=== PATIENT | male | born 1980 | race Hispanic/Latino ===

== ENCOUNTER 2019-06-07 11:46 | Emergency (ER) | payer OTHER | END 2019-06-07 12:18 | disposition left against medical advice (07) | LOC: EDH 11:46 | DX: Z53.21 Procedure and treatment not carried out due to patient leaving prior to being seen by health care provider (principal) ==

== ENCOUNTER 2020-02-10 14:16 | Emergency (ER) | payer SELFPAY ==
[2020-02-10] MEDS ORDERED: DEXAMETHASONE SOD PHOSPHATE 10MG/ML 1ML VIAL ONE (14:35)
[2020-02-10] MEDS ORDERED: KETOROLAC TROMETHAMINE 60 MG/2 ML VIAL ONE (14:35)
[2020-02-10 15:57] LABS: RAPID GROUP A STREP POSITIVE (NEGATIVE)
[2020-02-10] MEDS ORDERED: CEFTRIAXONE SODIUM 1 GM ONE (16:19)
[2020-02-10] MEDS ORDERED: LIDOCAINE HCL-MPF 1% 2ML VIAL ONE (16:20)
== END 2020-02-10 16:32 | disposition home or self-care (01) ==
LOC: EDH 14:16
DX: J02.0 Streptococcal pharyngitis (principal)
CPT/HCPCS: 87804 ×2; 87880; 96372 ×3; 99284; J0696; J1100; J1885; J3490

== ENCOUNTER 2020-12-16 11:28 | Observation (INO) | payer SELFPAY ==
[~2020-12-16] VITALS: Ht 167.6 cm; Wt 88.7 kg
[2020-12-16 11:53] LABS: BASOPHILS % (AUTO) 0.2 % (0.0-5.0); EOSINOPHILS % (AUTO) 1.8 % (0.0-8.0); HEMATOCRIT 44.6 % (42-54); LYMPHOCYTES % (AUTO) 22.7 % (21.0-51.0); MEAN CORPUSCULAR HEMOGLOBIN 28.5 pg (27.0-33.0); MEAN CORPUSCULAR HGB CONC 34.1 g/dL (32.0-36.0); MEAN CORPUSCULAR VOLUME 83.7 fL (79-99); NEUTROPHILS % (AUTO) 67.9 % (40.0-77.0); PLATELET COUNT (AUTO) 321 K/uL (130-400); RED BLOOD CELL COUNT(AUTO) 5.33 MIL/uL (4.50-6.20); RED CELL DISTRIBUTION WIDTH 13.1 % (11.0-15.5); WHITE BLOOD COUNT (AUTO) 8.2 K/uL (4.8-10.8)
[2020-12-16 12:05] LABS: CREATININE 0.9 mg/dL (0.5-1.5); POTASSIUM 3.6 mmol/L (3.5-5.1)
[2020-12-16 12:09] LABS: ALBUMIN 4.4 g/dL (3.5-5.0); BILIRUBIN,TOTAL 0.5 mg/dL (0.2-1.0); TOTAL PROTEIN, SERUM 8.3 g/dL (6.0-8.3)
[2020-12-16] MEDS ORDERED: MAG HYDROX/AL HYDROX/SIMETH ES 30 ML SUSP UDCUP ONE (12:59)
[2020-12-16] MEDS ORDERED: LIDOCAINE HCL 2% VISCOUS 15 ML UDCUP ONE (12:59)
[2020-12-16] MEDS ORDERED: ASPIRIN 325 MG TABLET ONE (12:59)
[2020-12-16 14:16] LABS: APPEARANCE,URINE Clear (CLEAR); BILIRUBIN,URINE Negative (NEGATIVE); COLOR,URINE Yellow (YELLOW); GLUCOSE, URINE (UA) Negative (NEGATIVE); KETONES,URINE 15 mg/dL (NEGATIVE); LEUKOCYTE ESTERASE ,URINE Negative (NEGATIVE); NITRATE,URINE Negative (NEGATIVE); OCCULT BLOOD,URINE Negative (NEGATIVE); PH,URINE 7.5 (5.0-8.0); PROTEIN,URINE Negative (NEGATIVE)
[2020-12-16 14:24] LABS: AMPHET/METH SCREEN,URINE NEGATIVE (NEGATIVE); BARBITURATE SCREEN, URINE NEGATIVE (NEGATIVE); BENZODIAZEPINES SCREEN,URINE NEGATIVE (NEGATIVE); CANNABINOID SCREEN,URINE NEGATIVE (NEGATIVE); COCAINE SCREEN,URINE NEGATIVE (NEGATIVE); OPIATE SCREEN,URINE NEGATIVE (NEGATIVE); PHENCYCLIDINE SCREEN,URINE NEGATIVE (NEGATIVE)
[2020-12-16] MEDS ORDERED: NITROGLYCERIN 0.4 MG SL TAB SL PRN (15:45)
[2020-12-16] MEDS ORDERED: MAG HYDROX/AL HYDROX/SIMETH ES 30 ML SUSP UDCUP PO SCH (16:00)
[2020-12-16 16:05] LABS: HEMOGLOBIN A1C 5.9 % (4.0-6.0)
[2020-12-16 16:13] LABS: THYROID STIMULATING HORMONE 0.77 uIU/mL (0.36-3.74)
[2020-12-16 18:16] VITALS: BP 127/87
[2020-12-16 20:00] VITALS: BP 118/84
[2020-12-16 23:50] VITALS: BP 108/68
[2020-12-17 03:55] VITALS: BP 111/66
[2020-12-17 08:00] VITALS: BP 112/76
[2020-12-17] MEDS ORDERED: ATORVASTATIN CALCIUM 20 MG TABLET PO SCH (09:00)
[2020-12-17] MEDS ORDERED: PANTOPRAZOLE SODIUM 40 MG TABLET.DR PO SCH (09:00)
[2020-12-17] MEDS ORDERED: ASPIRIN 81MG TAB.CHEW PO SCH (09:00)
[2020-12-17 11:21] VITALS: BP 114/70
[2020-12-17] MEDS ORDERED: ASPI-1005 PO (15:54)
[2020-12-17] MEDS ORDERED: ATOR20TA65 PO (15:54)
[2020-12-17] MEDS ORDERED: PANT40TA PO (15:54)
[2020-12-17 16:00] VITALS: BP 116/80
[2020-12-17 16:19] LABS: CHOLESTEROL 171 mg/dL (<200); HDL CHOLESTEROL 103 mg/dL (29-71); LDL DIRECT 113 mg/dL (0-99); TRIGLYCERIDES 111 mg/dL (30-200)
== END 2020-12-17 18:42 | disposition home or self-care (01) ==
LOC: EDH 11:28 → EDHIP 11:29 → 3CH 18:09
PROVIDERS: ADMIT Internal Medicine; ATTEND Internal Medicine
DX: R07.89 Other chest pain (principal); I45.10 Unspecified right bundle-branch block; R94.31 Abnormal electrocardiogram [ECG] [EKG]; Z90.49 Acquired absence of other specified parts of digestive tract
CPT/HCPCS: 36415 ×2; 71045; 80053; 80061 ×2; 80305; 81003; 83036; 83690; 84443; 84484 ×4; 85025; 93005 ×2; 93306; 93356; 99285; G0378 ×26

== ENCOUNTER 2024-11-29 05:22 | Emergency (ER) | payer BC ==
[~2024-11-29] VITALS: Ht 167.6 cm; Wt 95.3 kg
[~2024-11-29 05:22] MED LIST: ASPI-1005 PO; ATOR20TA65 PO; PANT40TA PO
--- NOTE | 2024-11-29 05:51 | ERN ---
ED Note History of Present Illness Stated Complaint: L SHOULDER PAIN Chief Complaint: Shoulder Injury/Pain Time Seen by MD: 05:38 Dictation: This is a 44-year-old male who presented to the emergency room with left shoulder pain. He sustained injury to the left shoulder while playing soccer yesterday and he fell on the left side when he was hit by another player he had minimal pain but had full range of motion no abrasions or lacerations. Pain got worse overnight hence came in for evaluation. Temperature 98 pulse 62 respirations 16 blood pressure 138/83 with a pulse oximetry of 98% on room air His chronic medical problems include hypercholesterolemia Allergies: Coded Allergies: No Known Drug Allergies (Unverified Allergy, Unknown, 02/10/20) Home Meds Active Scripts Pantoprazole Sodium (Protonix) 40 Mg Tablet.dr, 40 MG PO DAILY for 30 Days, #30 TAB Prov:JAI PUENTE I [facility] 12/17/20 Atorvastatin Calcium (Atorvastatin Calcium) 20 Mg Tablet, 20 MG PO DAILY for 30 Days, #30 TAB Prov:JAI PUENTE I [facility] 12/17/20 Aspirin (ASPIRIN 81MG CHEW TAB) 81 Mg Tab.chew, 81 MG PO DAILY for 30 Days, #30 TAB.CHEW Prov:JAI PUENTE I [facility] 12/17/20 Past Medical History Past Medical History: No Pertinent History, High Cholesterol Surgical History: Other Surgical History Other: EXCISION OF BROWN RECLUSE BITE L THIGH RN Note Reviewed/Agreed w/PFSH: Yes Review of System Dictation Constitutional: Negative for fever,chills, and weight loss Eyes: Negative for injury, pain,redness, and discharge ENT: Negative for injury,pain or swelling Cardiovascular: Negative for chest pain, palpitations, and edema Respiratory: Negative for shortness of breath, cough, and wheezing, Abdomen/GI: Negative for abdominal pain, nausea, vomiting, diarrhea, and constipation Back: Negative for injury and pain : Negative for injury, bleeding and discharge MS/Extremity: Positive for injury to left shoulder Skin: Negative for rash, and discoloration Neuro: Negative for headache, weakness, numbness, tingling, and seizure Psych: Negative for suicide ideation, homicidal ideation, and hallucinations Initial Vital Sign VS Vital Signs Date Time Temp Pulse Resp B/P (MAP) Pulse Ox O2 Delivery O2 Flow Rate FiO2 11/29/24 05:23 98.1 62 16 138/83 98 Room Air 0 11/29/24 06:08 21 Physical Exam Dictation General: awake, alert, NAD obese male Head/Face: Normocephalic, atraumatic Eyes: PERRL, EOMI, vision at baseline ENT: oral cavity clear, TMs clear, no signs of infection Neck: Trachea midline, supple, no nuchal rigidity Cardiovascular: RRR, normal S1/S2, No MRGs, no JVD Respiratory: CTAB, no respiratory distress, No rales or wheezes Abdomen: Soft, non-tender, non-distended, normal bowel sounds, no guarding or rebound. Skin: Warm, dry, normal turgor, no rash MS/Extremity: Pulses equal, no cyanosis, neurovascular intact, FROM pain with movement of the left arm and shoulder joint Neuro: COAx4, GCS 15, strength 5/5, CN 2-12 intact, normal cerebellar exam, normal gait, Psych: Normal behavior, mood, and affect normal Extremities-trace edema without any palpable cords, Homans sign is negative Results (Laboratory/Radiology) Labs Reviewed?: Yes ED Course ED Course Orders Procedure Category Date Status Time Shoulder Comp 2+Vws Lt RAD 11/29/24 Taken 05:38 Ketorolac PHA 11/29/24 Complete Tromethamine 30mg/Ml 06:00 Current Medications Medications (Trade) Dose Ordered Sig/Lindsay Route PRN Reason Start Time Stop Time Status Last Admin Dose Admin Ketorolac Tromethamine (toRADol) 30 mg ONCE ONCE IM 11/29/24 06:00 11/29/24 06:01 DC 11/29/24 06:04 Vital Signs Date Time Temp Pulse Resp B/P (MAP) Pulse Ox O2 Delivery O2 Flow Rate FiO2 11/29/24 06:08 71 16 131/67 99 Room Air* 0 21 11/29/24 05:23 98.1 62 16 138/83 98 Room Air 0 We will perform imaging and administer medications according to the patient's complaint. Once the results are available, will review and personally interpreted the labs to rule out any acute life-threatening emergency the trach require immediate intervention and treatment. I will then re-evaluate the patient after treatment and diagnostic exams have return to determine whether the patient requires any further testing, can safely be discharged home or need further admission to hospital for additional treatment and evaluation. Left shoulder x-ray-no obvious fracture of the humerus or dislocation of the joint noted final radiology report is pending at this time 7:24 a.m.-x-ray also reviewed by my colleague no evidence of any fracture or dislocation Medical Decision Making MDM MDM: Differential diagnosis: Shoulder dislocation, fracture of the humerus, rotator cuff tear, contusion Rationale: Tests considered and ordered secondary to shared decision making include: Previous outside records reviewed: Old ER visits. Risk of complication and/or morbidity or mortality of patient management: None Medications-Per medication reconciliation Need for hospitalization: Patient does not meet criteria for hospitalization. Need for emergency major/minor surgery: No There are no social concerns with this patient. Prescription drug management Prescriptions will include symptomatic care Patient's prior external medical records from other ER visits were reviewed by me as indicated. Prior testing and results from previous visits were reviewed. Prior tests were taken into account with medical decision making and resource utilization, independent historian/historians were used to obtain complete medical history. I independently interpreted the test that were performed, results were reviewed by me and considered findings on radiology if ordered. Medical management and examination interpretation discussions were had by me with other qualified healthcare professionals as indicated for the patient's care. Problem List Problem List: (1) Left shoulder pain (2) Injury of left shoulder DX & DISP Disposition: Discharge Departure Impression: Primary Impression: Left shoulder pain Additional Impression: Injury of left shoulder Condition: Stable Additional Instructions: Patient and the caregiver have been informed of all the diagnostic tests and the imaging conducted during the today's visit to the emergency room and has verbalized understanding of the results I have personally reviewed and interpreted all diagnostic exams performed here in the ER today as well as the vital signs documented by the nursing staff. The patient is now being discharged to home and should follow up with the primary care physician or the specialist as directed by the ER staff. Follow-up with primary care provider in 1 to 2 days. Take medications as directed here in the emergency room. Okay to continue home medications unless otherwise discussed during your visit in the emergency room today. Return to your nearest emergency room if symptoms worsen or if there is no improvement. Call 911 if you need immediate assistance. Take Tylenol or Motrin over-the- counter as needed and if no contraindications are present. Increase oral hydration. A wound culture or urine culture was ordered here in the emergency room department please follow-up with primary care provider and advise them to get repeat ports from our facility. If you had any Dayday wrap/splints that were applied here, please do not remove them until you see your primary care or specialty. Referrals: SELF,REFERRAL (PCP) MARYAM ELMORE MD Nov 29, 2024 05:51
[2024-11-29] MEDS: ketOROlac 30MG VIAL (30MG/ML) IM ONE (06:04)
[2024-11-29 07:33] VITALS: BP 127/69; PULSE 72; RESP 16; TEMP 98.1; O2SAT 98
--- NOTE | 2024-11-29 08:01 | HMCIMG ---
SHOULDER COMP 2+VWS LT HISTORY: Trauma COMPARISON: None TECHNIQUE: 2 images of left shoulder were obtained. FINDINGS: There is no acute displaced fracture or dislocation. Degenerative changes are seen. IMPRESSION: 1. Findings as described above.
== END 2024-11-29 07:38 | disposition home or self-care (01) ==
LOC: EDH 05:22
DX: S49.92XA Unspecified injury of left shoulder and upper arm, initial encounter (principal); M25.512 Pain in left shoulder; E78.00 Pure hypercholesterolemia, unspecified; Z79.82 Long term (current) use of aspirin; Z79.899 Other long term (current) drug therapy; W18.39XA Other fall on same level, initial encounter; Y93.66 Activity, soccer; Y92.89 Other specified places as the place of occurrence of the external cause; Y99.8 Other external cause status
CPT/HCPCS: 99284; 73030; 96372; J1885